=== PATIENT | male | born 1985 | race African-American/Black ===

== ENCOUNTER 2019-12-20 10:34 | Emergency (ER) | payer OTHER ==
[~2019-12-20] VITALS: Ht 188 cm; Wt 100.0 kg
[2019-12-20] MEDS ORDERED: ALBUTEROL (0.083%) 2.5MG/3ML NEB HHN ONE (11:00)
[2019-12-20 11:14] LABS: BASOPHILS % 0.8 % (0.0-2.0); EOSINOPHILS % 0.4 % (0.0-5.0); HEMATOCRIT. 46.2 % (42.0-52.0); HEMOGLOBIN. 15.6 g/dL (14.0-18.0); LYMPHOCYTES % 14.7 % (20.0-50.0); MEAN CORPUSCULAR HEMOGLOBIN 29.4 pg (28.0-32.0); MEAN CORPUSCULAR VOLUME 86.9 fL (80.0-94.0); MEAN PLATELET VOLUME 9.1 fl (7.4-10.4); MONOCYTES % 8.6 % (2.0-8.0); NEUTROPHILS % 75.5 % (40.0-76.0); PLATELET 200 x1000/uL (130-400); RED BLOOD CELL COUNT 5.31 mill/uL (4.7-6.1); RED CELL DISTRIBUTION WIDTH 14.7 % (11.6-14.6)
[2019-12-20 11:21] LABS: CHLORIDE 106 mEq/L (98-107)
[2019-12-20] MEDS ORDERED: FAMOTIDINE 20MG TABLET PO ONE (13:00)
[2019-12-20 13:40] LABS: CLARITY URINE CLEAR (CLEAR); COLOR URINE YELLOW (YELLOW); KETONES URINE 1+ (NEGATIVE); LEUKOCYTE ESTERASE URINE NEGATIVE (NEGATIVE); NITRITE URINE NEGATIVE (NEGATIVE); OCCULT BLOOD URINE NEGATIVE (NEGATIVE); PH URINE 6.5 (4.5-8.0); PROTEIN URINE NEGATIVE (NEGATIVE); SPECIFIC GRAVITY URINE 1.021 (1.005-1.030)
[2019-12-20 16:15] VITALS: BP 118/81
== END 2019-12-20 16:47 | disposition home or self-care (01) ==
LOC: EDBD 10:34 → ER 10:34
DX: R06.02 Shortness of breath (principal); J45.909 Unspecified asthma, uncomplicated
CPT/HCPCS: 36415; 71045; 74176; 80053; 81003; 82962; 84484; 85025; 93005; 94640; 99285; Z7610